=== PATIENT | male | born 1985 | race Caucasian/White ===

== ENCOUNTER 2017-11-10 08:15 | Emergency (ER) | payer BC, OTHER ==
[~2017-11-10] VITALS: Ht 172.7 cm; Wt 65.8 kg
[2017-11-10] MEDS ORDERED: PAXIL (08:38)
[2017-11-10] MEDS ORDERED: XANAX (08:38)
[2017-11-10] MEDS ORDERED: CHOLESTEROL MED (08:39)
[2017-11-10] MEDS ORDERED: LACTATED RINGERS 1,000 ML IV ONE (08:54)
[2017-11-10] MEDS ORDERED: LORazepam INJ 2 MG/ML (ATIVAN) VIAL IVP ONE (09:00)
--- NOTE | 2017-11-10 09:09 | ED Psychosocial ---
General Chief Complaint: Detox Stated Complaint: DETOX Nursing Triage Note: TO ROOM WITH PARENT. PATIENT WANTS DETOX FROM ALCOHOL LAST DRANK WAS LAST NIGHT, REPORTS. THAT IS SUPUPOSE TO BE ON PAXIL AND XANAX HAS STOPPED TAKING MEDS AND STARTED DRINKING. Source: patient Exam Limitations: no limitations History of Present Illness Date Seen by Provider: Nov 10, 2017 Time Seen by Provider: 08:45 Initial Comments Here with report of heavy alcohol use and wanted to stop drinking. States that he drinks a large bottle of vodka every 3 days. Last drink was last night some time. States that he wants to stop. Arrives hypertensive and with shakes. Also states that he takes alprazolam but has not been on that for the last week or 2. He takes it typically for his anxiety. Denies nausea or vomiting. Denies recent injury but had bump on his forehead that he is unsure were came from. Follows with Dr. Enciso. Last visit with his practitioner was 3 months ago or so. Works as a cook. Denies other recent injury or concerns. Timing/Duration: this morning Severity: moderate Associated Symptoms: other (alcohol abuse concerns) Allergies and Home Medications Allergies Coded Allergies: No Known Drug Allergies (Unverified , 08/19/14) Patient Home Medication List Home Medication List Reviewed: Yes Constitutional: see HPI, No chills, No fever EENTM: no symptoms reported Respiratory: no symptoms reported Cardiovascular: No edema, No palpitations Gastrointestinal: No abdominal pain, No hematemesis, loss of appetite, No nausea, No vomiting Genitourinary: no symptoms reported Musculoskeletal: no symptoms reported Skin: change in color, No lesions Psychiatric/Neurological: Anxiety, Denies Headache, Denies Numbness, Denies Paresthesia, Tremors All Other Systems Reviewed Negative Unless Noted: Yes Past Pvjvxpy-Blvkaz-Ubjvtf Hx Patient Social History Alcohol Use: Regular Use Alcohol Beverage of Choice: Vodka Recreational Drug Use: No Smoking Status: Never a Smoker Recent Foreign Travel: No Contact w/Someone Who Travel: No Recent Infectious Disease Expo: No Surgeries History of Surgeries: No Respiratory History of Respiratory Disorde: No Cardiovascular History of Cardiac Disorders: Yes Cardiac Disorders: High Cholesterol Neurological History of Neurological Disord: No Gastrointestinal History of Gastrointestinal Di: No Musculoskeletal History of Musculoskeletal Dis: No Endocrine History of Endocrine Disorders: No Cancer History of Cancer: No Psychosocial History of Psychiatric Problem: Yes Behavioral Health Disorders: Anxiety, Depression Integumentary History of Skin or Integumenta: No Reviewed Nursing Assessment Reviewed/Agree w Nursing PMH: Yes Family Medical History Significant Family History: No Pertinent Family Hx Physical Exam Vital Signs Vital Signs - First Documented 11/10/17 08:18 Temp 97.8 Pulse 130 Resp 18 B/P (MAP) 179/117 (137) Pulse Ox 98 O2 Delivery Room Air Capillary Refill : Less Than 3 Seconds General Appearance: WD/WN, no apparent distress HEENT: PERRL/EOMI, TMs normal, pharynx normal Neck: full range of motion, supple Respiratory: lungs clear, normal breath sounds Cardiovascular: no murmur, tachycardia Gastrointestinal: non tender, soft Extremities: non-tender, normal inspection Neurologic/Psychiatric: alert, oriented x 3, other (moderate tremors noted bilateral hands and arms and overall seems to be shaking some.) Appearance/Memory: appropriate appearance, appropriate insight Behavior/Eye Contact: cooperative, good eye contact, normal speech Skin: warm/dry, ecchymosis (3 x 3 cm area of ecchymosis/abrasion to the central upper forehead. No obvious bony abnormality otherwise.) Progress/Results/Core Measures Results/Orders Lab Results Laboratory Tests Test 11/10/17 09:03 11/10/17 09:28 Range/Units White Blood Count 4.0 L 4.3-11.0 10^3/uL Red Blood Count 3.91 L 4.35-5.85 10^6/uL Hemoglobin 14.8 13.3-17.7 G/DL Hematocrit 41 40-54 % Mean Corpuscular Volume 106 H 80-99 FL Mean Corpuscular Hemoglobin 38 H 25-34 PG Mean Corpuscular Hemoglobin Concent 36 32-36 G/DL Red Cell Distribution Width 13.3 10.0-14.5 % Platelet Count 149 130-400 10^3/uL Mean Platelet Volume 11.0 H 7.4-10.4 FL Neutrophils (%) (Auto) 40 L 42-75 % Lymphocytes (%) (Auto) 46 H 12-44 % Monocytes (%) (Auto) 13 H 0-12 % Eosinophils (%) (Auto) 1 0-10 % Basophils (%) (Auto) 1 0-10 % Neutrophils # (Auto) 1.6 L 1.8-7.8 X 10^3 Lymphocytes # (Auto) 1.9 1.0-4.0 X 10^3 Monocytes # (Auto) 0.5 0.0-1.0 X 10^3 Eosinophils # (Auto) 0.0 0.0-0.3 10^3/uL Basophils # (Auto) 0.0 0.0-0.1 10^3/uL Sodium Level 147 H 135-145 MMOL/L Potassium Level 3.6 3.6-5.0 MMOL/L Chloride Level 108 H 98-107 MMOL/L Carbon Dioxide Level 27 21-32 MMOL/L Anion Gap 12 5-14 MMOL/L Blood Urea Nitrogen 10 7-18 MG/DL Creatinine 0.74 0.60-1.30 MG/DL Estimat Glomerular Filtration Rate > 60 BUN/Creatinine Ratio 14 Glucose Level 84 70-105 MG/DL Calcium Level 9.2 8.5-10.1 MG/DL Total Bilirubin 0.6 0.1-1.0 MG/DL Aspartate Amino Transf (AST/SGOT) 165 H 5-34 U/L Alanine Aminotransferase (ALT/SGPT) 92 H 0-55 U/L Alkaline Phosphatase 68 40-136 U/L Total Protein 7.9 6.4-8.2 GM/DL Albumin 4.7 H 3.2-4.5 GM/DL Salicylates Level < 5.0 L 5.0-20.0 MG/DL Acetaminophen Level < 10 L 10-30 UG/ML Serum Alcohol 285 H <10 MG/DL Urine Color YELLOW Urine Clarity CLEAR Urine pH 6 5-9 Urine Specific [place] 1.020 1.016-1.022 Urine Protein 2+ H NEGATIVE Urine Glucose (UA) NEGATIVE NEGATIVE Urine Ketones NEGATIVE NEGATIVE Urine Nitrite NEGATIVE NEGATIVE Urine Bilirubin NEGATIVE NEGATIVE Urine Urobilinogen NORMAL NORMAL MG/DL Urine Leukocyte Esterase NEGATIVE NEGATIVE Urine RBC (Auto) NEGATIVE NEGATIVE Urine RBC NONE /HPF Urine WBC NONE /HPF Urine Squamous Epithelial Cells NONE /HPF Urine Crystals NONE /LPF Urine Bacteria NEGATIVE /HPF Urine Casts NONE /LPF Urine Mucus NEGATIVE /LPF Urine Culture Indicated NO Urine Opiates Screen NEGATIVE NEGATIVE Urine Oxycodone Screen NEGATIVE NEGATIVE Urine Methadone Screen NEGATIVE NEGATIVE Urine Propoxyphene Screen NEGATIVE NEGATIVE Urine Barbiturates Screen NEGATIVE NEGATIVE Ur Tricyclic Antidepressants Screen NEGATIVE NEGATIVE Urine Phencyclidine Screen NEGATIVE NEGATIVE Urine Amphetamines Screen NEGATIVE NEGATIVE Urine Methamphetamines Screen NEGATIVE NEGATIVE Urine Benzodiazepines Screen NEGATIVE NEGATIVE Urine Cocaine Screen NEGATIVE NEGATIVE Urine Cannabinoids Screen NEGATIVE NEGATIVE My Orders Orders - SHRUTHI DAVID MD Ua Culture If Indicated (11/10/17 08:54) Cbc With Automated Diff (11/10/17 08:54) Comprehensive Metabolic Panel (11/10/17 08:54) Alcohol (11/10/17 08:54) Drug Screen Stat (Urine) (11/10/17 08:54) Acetaminophen (11/10/17 08:54) Salicylate (11/10/17 08:54) Saline Lock/Iv-Start (11/10/17 08:54) Saline Lock/Iv-Start (11/10/17 08:54) Lactated Ringers (Lr 1000 Ml Iv Solution (11/10/17 08:54) Lorazepam Injection (Ativan Injection) (11/10/17 09:00) Ct Head Wo (11/10/17 08:56) Medications Given in ED Current Medications Medications Dose Ordered Sig/Amarjit Route Start Time Stop Time Status Last Admin Dose Admin Lactated Ringer's 1,000 ml @ 0 mls/hr Q0M ONCE IV 11/10/17 08:54 11/10/17 08:56 DC 11/10/17 09:09 1,000 MLS/HR Lorazepam 1 mg ONCE ONCE IVP 11/10/17 09:00 11/10/17 09:01 DC 11/10/17 09:09 1 MG Vital Signs/I&O Vital Sign - Last 12Hours 11/10/17 11/10/17 11/10/17 08:18 09:17 10:07 Temp 97.8 Pulse 130 105 Resp 18 18 B/P (MAP) 179/117 (137) 142/102 (115) 147/75 (99) Pulse Ox 98 95 O2 Delivery Room Air Room Air Blood Pressure Mean: 137 Progress Note : Progress Note Seen and evaluated. IV, labs, UA, UDS, normal saline 1 L bolus and Ativan 1 mg IV for significant withdrawal with heart rate 120s and blood pressure 170s over 120s. Also associated with fairly significant tremors. Monitor patient. 1030 : Labs and CT reviewed. I did discuss the case with Dr. Cami Farmer at [facility] with addiction treatment services. She has graciously accepted to see the patient today and assist with outpatient detox. Patient will go with his father. His father is very willing to help and also provide him a safe place to stay while going through the detox procedure. Patient still reports willingness and desired to stop drinking. Discharged home with return precautions. Patient and father will go directly to [facility]. Diagnostic Imaging Diagonstic Imaging: CT Plain Films/CT/US/NM/MRI: head Comments NAME: [facility] REC#: [id number] PT STATUS: REG ER : 1985 PHYSICIAN: SHRUTHI DAVID MD ADMIT DATE: 11/10/17/ER Signed Date of Exam: 11/10/17 CT HEAD WO PROCEDURE: CT head without contrast. TECHNIQUE: Multiple contiguous axial images were obtained through the brain without the use of intravenous contrast. INDICATION: Fall and head injury. No prior studies are available for comparison. FINDINGS: The ventricles and sulci are within normal limits. No sulcal effacement is identified. There is no midline shift. No acute intra-axial or extra-axial hemorrhage is detected. The cisterns are patent. The visualized paranasal sinuses are clear. IMPRESSION: No acute intracranial process is detected. Dictated by: Dictated on workstation # [id number] Dict: 11/10/17922 Trans: 11/10/17951 Interpreted by: SUGEY ANGULO MD Electronically signed by: SUGEY ANGULO MD 11/10/17951 Departure Impression Impression: Primary Impression: Alcohol abuse Additional Impression: Alcohol intoxication in active alcoholic Qualified Codes: F10.220 - Alcohol dependence with intoxication, uncomplicated Disposition: 01 HOME, SELF-CARE Condition: Stable Departure-Patient Inst. Decision time for Depature: 10:37 Referrals: CHARLEY ENCISO MD (PCP/Family) Primary Care Physician CAMI FARMER MD Patient Instructions: Alcohol Abuse and Alcoholism (DC) Add. Discharge Instructions: All discharge instructions reviewed with patient and/or family. Voiced understanding. Go directly to [facility] and he will see Dr. Farmer. Go through the [facility] entrance which is the specialty services entrance of the [facility] for your appointment. Return for other concerns as needed. Copy Copies To 1: CAMI FARMER MD Copies To 2: CHARLEY ENCISO MD, TIMOTHY D MD Nov 10, 2017 09:09
[2017-11-10 09:17] VITALS: BP 142/102
--- NOTE | 2017-11-10 09:26 | Diagnostic Imaging Report ---
PROCEDURE: CT head without contrast. TECHNIQUE: Multiple contiguous axial images were obtained through the brain without the use of intravenous contrast. INDICATION: Fall and head injury. No prior studies are available for comparison. FINDINGS: The ventricles and sulci are within normal limits. No sulcal effacement is identified. There is no midline shift. No acute intra-axial or extra-axial hemorrhage is detected. The cisterns are patent. The visualized paranasal sinuses are clear. IMPRESSION: No acute intracranial process is detected. Dictated by: Dictated on workstation # [id number]
[2017-11-10 09:27] LABS: BASOPHILS % (AUTO) 1 % (0-10); EOSINOPHILS % (AUTO) 1 % (0-10); HEMATOCRIT 41 % (40-54); HEMOGLOBIN 14.8 G/DL (13.3-17.7); LYMPHOCYTES # (AUTO) 1.9 X 10^3 (1.0-4.0); LYMPHOCYTES % (AUTO) 46 % (12-44); MEAN CORPUSCULAR HEMOGLOBIN 38 PG (25-34); MEAN CORPUSCULAR HGB CONC 36 G/DL (32-36); MEAN CORPUSCULAR VOLUME 106 FL (80-99); MONOCYTES # (AUTO) 0.5 X 10^3 (0.0-1.0); MONOCYTES % (AUTO) 13 % (0-12); NEUTROPHILS # (AUTO) 1.6 X 10^3 (1.8-7.8); NEUTROPHILS % (AUTO) 40 % (42-75); PLATELET COUNT 149 10^3/uL (130-400); RED BLOOD COUNT 3.91 10^6/uL (4.35-5.85); RED CELL DISTRIBUTION WIDTH 13.3 % (10.0-14.5)
[2017-11-10 09:34] LABS: BILIRUBIN,URINE NEGATIVE (NEGATIVE); CLARITY,URINE CLEAR; COLOR,URINE YELLOW; GLUCOSE, URINE (UA) NEGATIVE (NEGATIVE); KETONES,URINE NEGATIVE (NEGATIVE); LEUKOCYTE ESTERASE ,URINE NEGATIVE (NEGATIVE); NITRITE,URINE NEGATIVE (NEGATIVE); PH,URINE 6 (5-9); PROTEIN,URINE 2+ (NEGATIVE); UROBILINOGEN,URINE NORMAL (NORMAL)
[2017-11-10 09:38] LABS: ALANINE AMINOTRANSFERASE 92 U/L (0-55); ALBUMIN 4.7 GM/DL (3.2-4.5); ALKALINE PHOSPHATASE 68 U/L (40-136); BILIRUBIN,TOTAL 0.6 MG/DL (0.1-1.0); BUN/CREATININE RATIO 14; CALCIUM 9.2 MG/DL (8.5-10.1); CARBON DIOXIDE 27 MMOL/L (21-32); CHLORIDE 108 MMOL/L (98-107); CREATININE SERUM 0.74 MG/DL (0.60-1.30); GFR ESTIMATED > 60; GLUCOSE 84 MG/DL (70-105); POTASSIUM 3.6 MMOL/L (3.6-5.0); SALICYLATE < 5.0 MG/DL (5.0-20.0); SODIUM 147 MMOL/L (135-145); TOTAL PROTEIN 7.9 GM/DL (6.4-8.2)
[2017-11-10 09:41] LABS: ACETAMINOPHEN < 10 UG/ML (10-30)
[2017-11-10 09:49] LABS: AMPHETAMINE SCREEN, URINE NEGATIVE (NEGATIVE); BARBITURATE SCREEN URINE NEGATIVE (NEGATIVE); BENZODIAZEPINES SCREEN URINE NEGATIVE (NEGATIVE); CANNABINOID SCREEN, URINE NEGATIVE (NEGATIVE); COCAINE SCREEN URINE NEGATIVE (NEGATIVE); METHADONE STAT NEGATIVE (NEGATIVE); METHAMPHETAMINE SCREEN URINE S NEGATIVE (NEGATIVE); OPIATE SCREEN URINE NEGATIVE (NEGATIVE); OXYCODONE STAT NEGATIVE (NEGATIVE); PROPOXYPHENE STAT NEGATIVE (NEGATIVE); TRICYCLIC ANTIDEPRESSANTS SCRE NEGATIVE (NEGATIVE)
[2017-11-10 09:52] LABS: BACTERIA,URINE NEGATIVE /HPF
[2017-11-10 10:07] VITALS: BP 147/75
[2017-11-10 10:40] VITALS: BP 145/93
== END 2017-11-10 10:40 | disposition home or self-care (01) ==
LOC: EDUNIT# 08:15 → ER 08:17
DX: F10.229 Alcohol dependence with intoxication, unspecified (principal); E78.00 Pure hypercholesterolemia, unspecified; F41.9 Anxiety disorder, unspecified; F32.9 Major depressive disorder, single episode, unspecified
CPT/HCPCS: 36415; 70450; 80053; 80306; 80320; 80329; 81000; 85025; 96361; 96374

== ENCOUNTER 2017-11-13 09:50 | Inpatient (IN) | payer BC ==
[2017-11-13] VITALS (14 sets, daily range): BP systolic 101–181; BP diastolic 90–131
[~2017-11-13] VITALS: Ht 172.7 cm; Wt 76.3 kg
[~2017-11-13 09:50] MED LIST: CHOLESTEROL MED; PAXIL; XANAX
[2017-11-13] MEDS ORDERED: LACTATED RINGERS 1,000 ML IV ONE (10:14)
[2017-11-13] MEDS ORDERED: LORazepam INJ 2 MG/ML (ATIVAN) VIAL IVP ONE ×2 (10:15→11:00)
[2017-11-13 10:33] LABS: BASOPHILS % (AUTO) 0 % (0-10); EOSINOPHILS # (AUTO) 0.1 10^3/uL (0.0-0.3); EOSINOPHILS % (AUTO) 1 % (0-10); HEMATOCRIT 39 % (40-54); HEMOGLOBIN 14.1 G/DL (13.3-17.7); LYMPHOCYTES % (AUTO) 15 % (12-44); MEAN CORPUSCULAR HEMOGLOBIN 37 PG (25-34); MEAN CORPUSCULAR HGB CONC 36 G/DL (32-36); MEAN CORPUSCULAR VOLUME 104 FL (80-99); MEAN PLATELET VOLUME 11.5 FL (7.4-10.4); MONOCYTES # (AUTO) 0.8 X 10^3 (0.0-1.0); MONOCYTES % (AUTO) 12 % (0-12); NEUTROPHILS # (AUTO) 4.7 X 10^3 (1.8-7.8); NEUTROPHILS % (AUTO) 71 % (42-75); PLATELET COUNT 151 10^3/uL (130-400); RED BLOOD COUNT 3.77 10^6/uL (4.35-5.85); RED CELL DISTRIBUTION WIDTH 12.3 % (10.0-14.5); WHITE BLOOD COUNT 6.6 10^3/uL (4.3-11.0)
[2017-11-13 10:34] LABS: BILIRUBIN,URINE NEGATIVE (NEGATIVE); CLARITY,URINE SLIGHTLY CLOUDY; COLOR,URINE YELLOW; GLUCOSE, URINE (UA) NEGATIVE (NEGATIVE); KETONES,URINE NEGATIVE (NEGATIVE); LEUKOCYTE ESTERASE ,URINE 1+ (NEGATIVE); NITRITE,URINE NEGATIVE (NEGATIVE); PH,URINE 6 (5-9); PROTEIN,URINE NEGATIVE (NEGATIVE); UROBILINOGEN,URINE NORMAL (NORMAL)
[2017-11-13 10:49] LABS: BACTERIA,URINE NEGATIVE /HPF; HYALINE CASTS, URINE RARE /LPF; SQUAMOUS EPITHELIAL CELL,UR RARE /HPF; WBC,URINE RARE /HPF
[2017-11-13 10:55] LABS: ALANINE AMINOTRANSFERASE 87 U/L (0-55); ALBUMIN 4.5 GM/DL (3.2-4.5); ALKALINE PHOSPHATASE 80 U/L (40-136); AMPHETAMINE SCREEN, URINE NEGATIVE (NEGATIVE); BARBITURATE SCREEN URINE NEGATIVE (NEGATIVE); BENZODIAZEPINES SCREEN URINE POSITIVE (NEGATIVE); BILIRUBIN,TOTAL 0.8 MG/DL (0.1-1.0); BUN/CREATININE RATIO 16; CALCIUM 9.9 MG/DL (8.5-10.1); CANNABINOID SCREEN, URINE NEGATIVE (NEGATIVE); CARBON DIOXIDE 26 MMOL/L (21-32); CHLORIDE 104 MMOL/L (98-107); COCAINE SCREEN URINE NEGATIVE (NEGATIVE); CREATININE SERUM 0.79 MG/DL (0.60-1.30); GFR ESTIMATED > 60; GLUCOSE 95 MG/DL (70-105); MAGNESIUM 1.9 MG/DL (1.8-2.4); METHADONE STAT NEGATIVE (NEGATIVE); METHAMPHETAMINE SCREEN URINE S NEGATIVE (NEGATIVE); OPIATE SCREEN URINE NEGATIVE (NEGATIVE); OXYCODONE STAT NEGATIVE (NEGATIVE); POTASSIUM 4.1 MMOL/L (3.6-5.0); PROPOXYPHENE STAT NEGATIVE (NEGATIVE); SODIUM 137 MMOL/L (135-145); TOTAL PROTEIN 7.2 GM/DL (6.4-8.2); TRICYCLIC ANTIDEPRESSANTS SCRE NEGATIVE (NEGATIVE)
[2017-11-13 11:15] LABS: TSH (THYROID ANALYZER) 2.86 UIU/ML (0.35-4.94)
[2017-11-13] MEDS ORDERED: ZIPRASIDONE 20 MG (GEODON) CAP PO ONE (12:15)
--- NOTE | 2017-11-13 12:20 | ED Psychosocial ---
General Chief Complaint: Detox Stated Complaint: "HALLUCINATIONS" Nursing Triage Note: PT TO ED 8 PT CO OF HALLUCINATIONS AND CONFUSION. PT HAS BEEN DETOXING SINCE WEDNESDAY FROM DRINKING APPROX 3 GALLONS OF VODKA WEEKLY,PT WAS SEEN IN ED ON WEDNESDAY AND SEEN AT [facility] FOR DETOX MEDS. PT HAS TREMORS NOTED. PT DENIES SEIZURES Source: patient, family Exam Limitations: no limitations History of Present Illness Date Seen by Provider: Nov 13, 2017 Time Seen by Provider: 09:51 Initial Comments Patient presents in acute alcohol withdrawal with psychosis, tremors, hallucinations, tachycardia, and confusion. He quit drinking alcohol on November 10. He was being seen by Dr. Mikala Jenkins in the clinic setting and has been taking Ativan and clonidine orally. This has not been sufficient for management of his symptoms. Allergies and Home Medications Allergies Coded Allergies: No Known Drug Allergies (Unverified , 08/19/14) Patient Home Medication List Home Medication List Reviewed: Yes Constitutional: no symptoms reported EENTM: no symptoms reported Respiratory: no symptoms reported Cardiovascular: see HPI (tachycardia) Gastrointestinal: nausea Genitourinary: no symptoms reported Musculoskeletal: no symptoms reported Skin: no symptoms reported Psychiatric/Neurological: See HPI Past Ectgthe-Ncupnw-Lxtaxd Hx Patient Social History Alcohol Use: Regular Use Number of Drinks Today: 0 Alcohol Beverage of Choice: Vodka Recreational Drug Use: No Smoking Status: Current Everyday Smoker Type Used: Cigarettes Recent Foreign Travel: No Contact w/Someone Who Travel: No Recent Infectious Disease Expo: No Recent Hopitalizations: No Physical Abuse: No Sexual Abuse: No Seasonal Allergies Seasonal Allergies: No Surgeries History of Surgeries: No Respiratory History of Respiratory Disorde: No Cardiovascular History of Cardiac Disorders: Yes Cardiac Disorders: High Cholesterol Neurological History of Neurological Disord: No Genitourinary History of Genitourinary Disor: No Gastrointestinal History of Gastrointestinal Di: No Musculoskeletal History of Musculoskeletal Dis: No Endocrine History of Endocrine Disorders: No HEENT History of HEENT Disorders: No Cancer History of Cancer: No Psychosocial History of Psychiatric Problem: Yes (alcohol dependence) Behavioral Health Disorders: Anxiety, Depression Suicide Risk Score: 0 Integumentary History of Skin or Integumenta: No Family Medical History Significant Family History: No Pertinent Family Hx Physical Exam Vital Signs Vital Signs - First Documented 11/13/17 10:00 Temp 97.9 Pulse 92 Resp 18 B/P (MAP) 148/105 (119) Pulse Ox 98 Capillary Refill : Less Than 3 Seconds General Appearance: WD/WN, mild distress HEENT: PERRL/EOMI, normal ENT inspection, pharynx normal Neck: normal inspection Respiratory: lungs clear, normal breath sounds, no respiratory distress, no accessory muscle use Cardiovascular: no edema, no murmur, tachycardia Gastrointestinal: normal bowel sounds, non tender, soft Extremities: normal inspection, no pedal edema Neurologic/Psychiatric: barrel centerer II-XII nml as tested, no motor/sensory deficits, alert, other (disoriented, hallucinating, occasionally agitated) Appearance/Memory: impaired insight, impaired recent memory Behavior/Eye Contact: cooperative, good eye contact, normal speech Thoughts/Hallucinations: tactile hallucinations, visual hallucinations Skin: normal color, warm/dry Progress/Results/Core Measures Results/Orders Lab Results Laboratory Tests Test 11/13/17 10:23 Range/Units White Blood Count 6.6 4.3-11.0 10^3/uL Red Blood Count 3.77 L 4.35-5.85 10^6/uL Hemoglobin 14.1 13.3-17.7 G/DL Hematocrit 39 L 40-54 % Mean Corpuscular Volume 104 H 80-99 FL Mean Corpuscular Hemoglobin 37 H 25-34 PG Mean Corpuscular Hemoglobin Concent 36 32-36 G/DL Red Cell Distribution Width 12.3 10.0-14.5 % Platelet Count 151 130-400 10^3/uL Mean Platelet Volume 11.5 H 7.4-10.4 FL Neutrophils (%) (Auto) 71 42-75 % Lymphocytes (%) (Auto) 15 12-44 % Monocytes (%) (Auto) 12 0-12 % Eosinophils (%) (Auto) 1 0-10 % Basophils (%) (Auto) 0 0-10 % Neutrophils # (Auto) 4.7 1.8-7.8 X 10^3 Lymphocytes # (Auto) 1.0 1.0-4.0 X 10^3 Monocytes # (Auto) 0.8 0.0-1.0 X 10^3 Eosinophils # (Auto) 0.1 0.0-0.3 10^3/uL Basophils # (Auto) 0.0 0.0-0.1 10^3/uL Urine Color YELLOW Urine Clarity SLIGHTLY CLOUDY Urine pH 6 5-9 Urine Specific [place] 1.010 L 1.016-1.022 Urine Protein NEGATIVE NEGATIVE Urine Glucose (UA) NEGATIVE NEGATIVE Urine Ketones NEGATIVE NEGATIVE Urine Nitrite NEGATIVE NEGATIVE Urine Bilirubin NEGATIVE NEGATIVE Urine Urobilinogen NORMAL NORMAL MG/DL Urine Leukocyte Esterase 1+ H NEGATIVE Urine RBC (Auto) NEGATIVE NEGATIVE Urine RBC NONE /HPF Urine WBC RARE /HPF Urine Squamous Epithelial Cells RARE /HPF Urine Crystals NONE /LPF Urine Bacteria NEGATIVE /HPF Urine Casts PRESENT /LPF Urine Hyaline Casts RARE /LPF Urine Mucus NEGATIVE /LPF Urine Culture Indicated NO Sodium Level 137 135-145 MMOL/L Potassium Level 4.1 3.6-5.0 MMOL/L Chloride Level 104 98-107 MMOL/L Carbon Dioxide Level 26 21-32 MMOL/L Anion Gap 7 5-14 MMOL/L Blood Urea Nitrogen 13 7-18 MG/DL Creatinine 0.79 0.60-1.30 MG/DL Estimat Glomerular Filtration Rate > 60 BUN/Creatinine Ratio 16 Glucose Level 95 70-105 MG/DL Calcium Level 9.9 8.5-10.1 MG/DL Magnesium Level 1.9 1.8-2.4 MG/DL Total Bilirubin 0.8 0.1-1.0 MG/DL Aspartate Amino Transf (AST/SGOT) 103 H 5-34 U/L Alanine Aminotransferase (ALT/SGPT) 87 H 0-55 U/L Alkaline Phosphatase 80 40-136 U/L Total Protein 7.2 6.4-8.2 GM/DL Albumin 4.5 3.2-4.5 GM/DL TSH [place] Testing 2.86 0.35-4.94 UIU/ML Urine Opiates Screen NEGATIVE NEGATIVE Urine Oxycodone Screen NEGATIVE NEGATIVE Urine Methadone Screen NEGATIVE NEGATIVE Urine Propoxyphene Screen NEGATIVE NEGATIVE Urine Barbiturates Screen NEGATIVE NEGATIVE Ur Tricyclic Antidepressants Screen NEGATIVE NEGATIVE Urine Phencyclidine Screen NEGATIVE NEGATIVE Urine Amphetamines Screen NEGATIVE NEGATIVE Urine Methamphetamines Screen NEGATIVE NEGATIVE Urine Benzodiazepines Screen POSITIVE H NEGATIVE Urine Cocaine Screen NEGATIVE NEGATIVE Urine Cannabinoids Screen NEGATIVE NEGATIVE Serum Alcohol < 10 <10 MG/DL My Orders Orders - LING MARTIN MD Alcohol (11/13/17 10:05) Cbc With Automated Diff (11/13/17 10:05) Comprehensive Metabolic Panel (11/13/17 10:05) Drug Screen Stat (Urine) (11/13/17 10:05) Magnesium (11/13/17 10:05) Thyroid Analyzer (11/13/17 10:05) Ua Culture If Indicated (11/13/17 10:05) Saline Lock/Iv-Start (11/13/17 10:05) Saline Lock/Iv-Start (11/13/17 10:14) Lactated Ringers (Lr 1000 Ml Iv Solution (11/13/17 10:14) Lorazepam Injection (Ativan Injection) (11/13/17 10:15) Lorazepam Injection (Ativan Injection) (11/13/17 11:00) Ziprasidone Capsule (Geodon Capsule) (11/13/17 12:15) Medications Given in ED Current Medications Medications Dose Ordered Sig/Amarjit Route Start Time Stop Time Status Last Admin Dose Admin Lactated Ringer's 1,000 ml @ 0 mls/hr Q0M ONCE IV 11/13/17 10:14 11/13/17 10:17 DC 11/13/17 10:30 1,000 MLS/HR Lorazepam 2 mg ONCE ONCE IVP 11/13/17 10:15 11/13/17 10:17 DC 11/13/17 10:30 2 MG Lorazepam 2 mg ONCE ONCE IVP 11/13/17 11:00 11/13/17 11:01 DC 11/13/17 11:03 2 MG Vital Signs/I&O Vital Sign - Last 12Hours 11/13/17 11/13/17 11/13/17 11/13/17 10:00 12:50 13:00 13:00 Temp 97.9 Pulse 92 88 70 Resp 18 18 12 B/P (MAP) 148/105 (119) 146/109 (119) 153/103 (120) Pulse Ox 98 98 O2 Delivery Room Air Room Air 11/13/17 11/13/17 11/13/17 11/13/17 13:04 13:15 13:30 13:45 Pulse 84 93 121 111 Resp 13 23 8 B/P (MAP) 141/114 (123) 159/127 (138) O2 Delivery Room Air Room Air Room Air 11/13/17 11/13/17 11/13/17 11/13/17 14:00 14:15 15:00 16:00 Pulse 138 123 85 Resp 27 27 9 B/P (MAP) 101/90 (94) 140/108 (119) 150/99 (116) O2 Delivery Room Air Room Air Room Air Room Air 11/13/17 11/13/17 16:00 17:00 Pulse 140 76 Resp 18 15 B/P (MAP) 181/131 (148) 157/109 (125) Pulse Ox 95 96 O2 Delivery Room Air Room Air Blood Pressure Mean: 119 Progress Note : Progress Note Patient received a liter of LR. He received a total of 4 mg of Ativan in the emergency room and was still rather symptomatic. Geodon 20 mg orally was also ordered. Patient will be admitted to the ICU on alcohol withdrawal protocol. Departure Communication (Admissions) Time/Spoke to Admitting Phy: 12:[address] Mireles Impression Impression: Primary Impression: Alcohol withdrawal Qualified Codes: F10.231 - Alcohol dependence with withdrawal delirium Additional Impression: Acute psychosis Disposition: ADMITTED INPATIENT Condition: Improved Admissions Decision to Admit Reason: Admit from ER (General) Decision to Admit/Date: Nov 13, 2017 Time/Decision to Admit Time: 10:00 Departure-Patient Inst. Referrals: CHARLEY ENCISO MD (PCP/Family) Primary Care Physician LING MARTIN MD Nov 13, 2017 12:20
[2017-11-13] MEDS ORDERED: LORazepam 1 MG (ATIVAN) TAB ONE (13:32)
[2017-11-13] MEDS ORDERED: 1/2 NS IV SOLUTION 1,000 ML IV PRN (13:40)
[2017-11-13] MEDS: LORazepam 1 MG (ATIVAN) TAB PO PRN (13:44)
[2017-11-13] MEDS ORDERED: ONDANSETRON 4 MG (ZOFRAN) ORAL DISSOLVE TAB SL PRN (13:45)
[2017-11-13] MEDS ORDERED: ONDANSETRON 4 MG/2 ML (SDV) Z0FRAN IV PRN (13:45)
[2017-11-13] MEDS ORDERED: D5 1/2 NS 1000 ML IV SOLUTION 1,000 ML IV PRN (13:45)
[2017-11-13] MEDS ORDERED: SENNA W/DOCUSATE (SENOKOT S) TABLET PO PRN (13:45)
--- NOTE | 2017-11-13 14:27 | History & Physicial (CHS) ---
HPI History of Present Illness: 32-year-old white male admitted through emergency department after suffering from psychosis due to alcohol delirium and withdrawal. Patient quit drinking alcohol as he admits to on November 10, 2017. Patient has received Ativan intravenously in the emergency department with minimal relief of his psychosis. He'll be admitted for further alcohol detoxification orders and ICU monitoring. Source: patient Date seen by provider: Nov 13, 2017 Time Seen by Provider: 14:30 Attending Physician Nara Tijerina MD PCP Chris Potts MD Consult Date of Admission Nov 13, 2017 at 12:13 Home Medications Home Medications Reviewed patient Home Medication Reconciliation performed by pharmacy medication reconciliations thermal technician and/or nursing. Patients Allergies have been reviewed. Allergies Coded Allergies: No Known Drug Allergies (Unverified , 08/19/14) KSC-Lipnze-Tnjcod Hx Patient Social History Alcohol Use: Regular Use Recreational Drug Use: No Smoking Status: Current Someday Smoker Type Used: Cigarettes Recent Foreign Travel: No Contact w/other who traveled: No Recent Hopitalizations: No Recent Infectious Disease Expo: No Physical Abuse Screen: No Sexual Abuse: No Family Medical History Significant Family History: No Pertinent Family Hx Family History: Alcoholism G8 BROTHER Alzheimer's disease Insomnia G8 BROTHER Myocardial infarction 19 FATHER Review of Systems (CHC) Constitutional: see HPI Reviewed Test Results Reviewed Test Results Lab Laboratory Tests Test 11/13/17 10:23 Range/Units White Blood Count 6.6 4.3-11.0 10^3/uL Red Blood Count 3.77 L 4.35-5.85 10^6/uL Hemoglobin 14.1 13.3-17.7 G/DL Hematocrit 39 L 40-54 % Mean Corpuscular Volume 104 H 80-99 FL Mean Corpuscular Hemoglobin 37 H 25-34 PG Mean Corpuscular Hemoglobin Concent 36 32-36 G/DL Red Cell Distribution Width 12.3 10.0-14.5 % Platelet Count 151 130-400 10^3/uL Mean Platelet Volume 11.5 H 7.4-10.4 FL Neutrophils (%) (Auto) 71 42-75 % Lymphocytes (%) (Auto) 15 12-44 % Monocytes (%) (Auto) 12 0-12 % Eosinophils (%) (Auto) 1 0-10 % Basophils (%) (Auto) 0 0-10 % Neutrophils # (Auto) 4.7 1.8-7.8 X 10^3 Lymphocytes # (Auto) 1.0 1.0-4.0 X 10^3 Monocytes # (Auto) 0.8 0.0-1.0 X 10^3 Eosinophils # (Auto) 0.1 0.0-0.3 10^3/uL Basophils # (Auto) 0.0 0.0-0.1 10^3/uL Urine Color YELLOW Urine Clarity SLIGHTLY CLOUDY Urine pH 6 5-9 Urine Specific [place] 1.010 L 1.016-1.022 Urine Protein NEGATIVE NEGATIVE Urine Glucose (UA) NEGATIVE NEGATIVE Urine Ketones NEGATIVE NEGATIVE Urine Nitrite NEGATIVE NEGATIVE Urine Bilirubin NEGATIVE NEGATIVE Urine Urobilinogen NORMAL NORMAL MG/DL Urine Leukocyte Esterase 1+ H NEGATIVE Urine RBC (Auto) NEGATIVE NEGATIVE Urine RBC NONE /HPF Urine WBC RARE /HPF Urine Squamous Epithelial Cells RARE /HPF Urine Crystals NONE /LPF Urine Bacteria NEGATIVE /HPF Urine Casts PRESENT /LPF Urine Hyaline Casts RARE /LPF Urine Mucus NEGATIVE /LPF Urine Culture Indicated NO Sodium Level 137 135-145 MMOL/L Potassium Level 4.1 3.6-5.0 MMOL/L Chloride Level 104 98-107 MMOL/L Carbon Dioxide Level 26 21-32 MMOL/L Anion Gap 7 5-14 MMOL/L Blood Urea Nitrogen 13 7-18 MG/DL Creatinine 0.79 0.60-1.30 MG/DL Estimat Glomerular Filtration Rate > 60 BUN/Creatinine Ratio 16 Glucose Level 95 70-105 MG/DL Calcium Level 9.9 8.5-10.1 MG/DL Magnesium Level 1.9 1.8-2.4 MG/DL Total Bilirubin 0.8 0.1-1.0 MG/DL Aspartate Amino Transf (AST/SGOT) 103 H 5-34 U/L Alanine Aminotransferase (ALT/SGPT) 87 H 0-55 U/L Alkaline Phosphatase 80 40-136 U/L Total Protein 7.2 6.4-8.2 GM/DL Albumin 4.5 3.2-4.5 GM/DL TSH [facility] Testing 2.86 0.35-4.94 UIU/ML Urine Opiates Screen NEGATIVE NEGATIVE Urine Oxycodone Screen NEGATIVE NEGATIVE Urine Methadone Screen NEGATIVE NEGATIVE Urine Propoxyphene Screen NEGATIVE NEGATIVE Urine Barbiturates Screen NEGATIVE NEGATIVE Ur Tricyclic Antidepressants Screen NEGATIVE NEGATIVE Urine Phencyclidine Screen NEGATIVE NEGATIVE Urine Amphetamines Screen NEGATIVE NEGATIVE Urine Methamphetamines Screen NEGATIVE NEGATIVE Urine Benzodiazepines Screen POSITIVE H NEGATIVE Urine Cocaine Screen NEGATIVE NEGATIVE Urine Cannabinoids Screen NEGATIVE NEGATIVE Serum Alcohol < 10 <10 MG/DL Physical Exam-(CHC) Physical Exam Vital Signs VS - Last 72 Hours, by Label 11/13/17 11/13/17 11/13/17 11/13/17 10:00 12:50 13:00 13:00 Temp 97.9 Pulse 92 88 70 Resp 18 18 12 B/P (MAP) 148/105 (119) 146/109 (119) 153/103 (120) Pulse Ox 98 98 O2 Delivery Room Air Room Air 11/13/17 11/13/17 11/13/17 11/13/17 13:04 13:15 13:30 13:45 Pulse 84 93 121 111 Resp 13 23 8 B/P (MAP) 141/114 (123) 159/127 (138) O2 Delivery Room Air Room Air Room Air 11/13/17 11/13/17 11/13/17 11/13/17 14:00 14:15 15:00 16:00 Pulse 138 123 85 Resp 27 27 9 B/P (MAP) 101/90 (94) 140/108 (119) 150/99 (116) O2 Delivery Room Air Room Air Room Air Room Air 11/13/17 11/13/17 11/13/17 11/13/17 16:00 17:00 18:00 19:00 Pulse 140 76 58 54 Resp 18 15 13 B/P (MAP) 181/131 (148) 157/109 (125) 158/113 (128) Pulse Ox 95 96 96 O2 Delivery Room Air Room Air Room Air 11/13/17 11/13/17 11/13/17 11/13/17 19:20 20:00 20:00 21:00 Temp 96.6 Pulse 68 48 48 Resp 15 14 13 B/P (MAP) 145/108 (120) 162/108 (126) 157/108 (124) Pulse Ox 96 96 95 O2 Delivery Room Air Room Air Room Air Room Air 11/13/17 11/13/17 11/14/17 11/14/17 22:00 23:00 00:00 00:00 Temp 97.2 Pulse 73 44 45 Resp 15 12 12 B/P (MAP) 165/115 (132) 168/112 (130) 163/115 (131) Pulse Ox 92 98 100 O2 Delivery Nasal Cannula Nasal Cannula Nasal Cannula Nasal Cannula O2 Flow Rate 2.00 2.00 2.00 2.00 11/14/17 11/14/17 11/14/17 11/14/17 01:00 01:00 02:00 03:00 Pulse 71 44 43 45 Resp 11 10 16 B/P (MAP) 167/128 (141) 162/116 (131) 162/114 (130) Pulse Ox 96 100 99 O2 Delivery Nasal Cannula Nasal Cannula Nasal Cannula O2 Flow Rate 3.00 3.00 3.00 11/14/17 11/14/17 11/14/17 11/14/17 04:00 04:00 04:00 05:00 Temp 96.8 Pulse 57 72 Resp 13 12 B/P (MAP) 178/129 (145) 153/126 (135) Pulse Ox 100 98 O2 Delivery Nasal Cannula Nasal Cannula Nasal Cannula O2 Flow Rate 3.00 3.00 3.00 11/14/17 11/14/17 11/14/17 11/14/17 06:00 07:00 07:00 08:00 Pulse 81 75 75 80 Resp 11 11 10 B/P (MAP) 147/100 (116) 134/99 (111) 131/109 (116) Pulse Ox 100 100 100 O2 Delivery Nasal Cannula Nasal Cannula Nasal Cannula O2 Flow Rate 3.00 3.00 3.00 11/14/17 08:00 O2 Delivery Nasal Cannula O2 Flow Rate 3.00 Capillary Refill : Less Than 3 Seconds General Appearance: other HEENT: pharynx normal Neck: supple Respiratory: lungs clear Cardiovascular: regular rate, rhythm (on admit) Gastrointestinal: soft Rectal: deferred Back: normal inspection Extremities: no pedal edema Neurologic/Psychiatric: alert, other (Very agitated) Skin: normal color Assessment/Plan Assessment/Plan Admission Dx 1. Alcohol withdrawal 2. Acute psychosis due to the alcohol withdrawal Admission Status: Observation Reason for Inpatient Admission: Further monitoring of his alcohol withdrawal and delirium Assessment & Plan 1. Alcohol withdrawal -Patient to be placed on detoxification orders 2. Acute psychosis due to the alcohol withdrawal -Detox orders should help with the psychosis as he improves. -Ativan when necessary Clinical Quality Measures DVT/VTE Risk/Contraindication: Risk Factor Score Per Nursin RFS Level Per Nursing on Admit: 1=Low/No VTE PPX NARA TIJERINA MD Nov 13, 2017 14:27
[2017-11-13] MEDS: LORazepam INJ 2 MG/ML (ATIVAN) VIAL IV PRN ×5 (14:48→21:30)
[2017-11-13] MEDS: DEXMEDETOMIDINE INJECTION 400 MCG in NS (IVPB) 96 ML IV SCH ×2 (15:29→21:11)
[2017-11-13] MEDS: D5 1/2 NS 1000 ML IV SOLUTION 1,000 ML IV SCH ×2 (15:42→22:23)
[2017-11-13] MEDS ORDERED: INFLUENZA TRIvalent 2017-2018 0.5 ML/45 MCG SYR IM ONE (15:45)
[2017-11-13] MEDS ORDERED: OLANZapine 5 MG ODT (ZyPREXA ZYDIS) ONE (16:27)
[2017-11-13] MEDS ORDERED: HALOPERIDOL 5 MG/ML (HALDOL) AMP ONE (16:43)
[2017-11-13] MEDS ORDERED: OLANZapine 5 MG ODT (ZyPREXA ZYDIS) PO PRN (16:45)
[2017-11-13] MEDS ORDERED: LORazepam INJ 2 MG/ML (ATIVAN) VIAL IV NR (16:57)
[2017-11-13] MEDS: QUEtiapine 100 MG (SEROquel) TAB IMMEDIATE RELEASE PO SCH (21:00)
[2017-11-13] MEDS ORDERED: MAGNESIUM OXIDE (MAG-OX)400 MG TAB PO SCH (21:00)
[2017-11-13] MEDS: LORazepam INJ 2 MG/ML (ATIVAN) VIAL IM/IV PRN (22:16)
[2017-11-13] MEDS: HALOPERIDOL 5 MG/ML (HALDOL) AMP IV PRN (22:25)
[2017-11-14] VITALS (24 sets, daily range): BP systolic 98–178; BP diastolic 64–129
[2017-11-14] MEDS: LORazepam INJ 2 MG/ML (ATIVAN) VIAL IV PRN ×5 (00:47→11:59)
[2017-11-14] MEDS: DEXMEDETOMIDINE INJECTION 400 MCG in NS (IVPB) 96 ML IV SCH ×2 (05:11→22:03)
[2017-11-14] MEDS: D5 1/2 NS 1000 ML IV SOLUTION 1,000 ML IV SCH ×3 (05:25→20:52)
[2017-11-14] MEDS ORDERED: MULTIVIT W/MINERALS TAB (THERAGRAN M) PO SCH (07:00)
[2017-11-14] MEDS ORDERED: THIAMINE 100 MG (VITAMIN B-1) TAB PO SCH (07:00)
[2017-11-14] MEDS: HALOPERIDOL 5 MG/ML (HALDOL) AMP IV PRN ×2 (08:09→11:59)
[2017-11-14] MEDS: FOLIC ACID 1 MG TAB PO SCH (08:14)
[2017-11-14] MEDS: THIAMINE INJECTION 100 MG, FOLIC ACID INJECTION 1 MG, VITAMIN MULTI INJECTION 10 ML, MA... IV SCH ×5 (08:41)
--- NOTE | 2017-11-14 08:51 | Progress Note (SOAP) ---
Subjective Subjective/Events-last exam Patient has been up throughout the night off and on. At times of agitation his blood pressure is elevated. He is also converted over to A. fib throughout the night. Review of Systems Date Seen by Provider: Nov 14, 2017 Time Seen by Provider: 07:15 Objective Exam Last Set of Vital Signs Vital Signs Date Time Temp Pulse Resp B/P (MAP) Pulse Ox O2 Delivery O2 Flow Rate FiO2 11/14/17 08:00 Nasal Cannula 3.00 11/14/17 08:00 80 10 131/109 (116) 100 11/14/17 04:00 96.8 Capillary Refill : Less Than 3 Seconds I&O Intake and Output 11/14/17 00:00 Intake Total 1692 ml Output Total 950 ml Balance 742 ml Intake Oral 590 ml IV Total 1102 ml Output Urine Total 950 ml # Voids 5 Daily Weight Change No General: No Acute Distress (This a.m. and he is resting) Neck: Supple Lungs: Clear to Auscultation Heart: Other (Irregular irregular) Abdomen: Soft Skin: No Rashes Results/Procedures Lab Laboratory Tests 11/13/17 10:23: White Blood Count 6.6, Red Blood Count 3.77L, Hemoglobin 14.1, Hematocrit 39L, Mean Corpuscular Volume 104H, Mean Corpuscular Hemoglobin 37H, Mean Corpuscular Hemoglobin Concent 36, Red Cell Distribution Width 12.3, Platelet Count 151, Mean Platelet Volume 11.5H, Neutrophils (%) (Auto) 71, Lymphocytes (%) (Auto) 15 , Monocytes (%) (Auto) 12, Eosinophils (%) (Auto) 1, Basophils (%) (Auto) 0, Neutrophils # (Auto) 4.7, Lymphocytes # (Auto) 1.0, Monocytes # (Auto) 0.8, Eosinophils # (Auto) 0.1, Basophils # (Auto) 0.0, Urine Color YELLOW, Urine Clarity SLIGHTLY CLOUDY, Urine pH 6, Urine Specific [place] 1.010L, Urine Protein NEGATIVE, Urine Glucose (UA) NEGATIVE, Urine Ketones NEGATIVE, Urine Nitrite NEGATIVE, Urine Bilirubin NEGATIVE, Urine Urobilinogen NORMAL, Urine Leukocyte Esterase 1+H, Urine RBC (Auto) NEGATIVE, Urine RBC NONE, Urine WBC RARE, Urine Squamous Epithelial Cells RARE, Urine Crystals NONE, Urine Bacteria NEGATIVE, Urine Casts PRESENT, Urine Hyaline Casts RARE, Urine Mucus NEGATIVE, Urine Culture Indicated NO, Sodium Level 137, Potassium Level 4.1, Chloride Level 104, Carbon Dioxide Level 26, Anion Gap 7, Blood Urea Nitrogen 13, Creatinine 0.79, Estimat Glomerular Filtration Rate > 60, BUN/Creatinine Ratio 16, Glucose Level 95, Calcium Level 9.9, Magnesium Level 1.9, Total Bilirubin 0.8, Aspartate Amino Transf (AST/SGOT) 103H, Alanine Aminotransferase (ALT/SGPT ) 87H, Alkaline Phosphatase 80, Total Protein 7.2, Albumin 4.5, TSH [place] Testing 2.86, Urine Opiates Screen NEGATIVE, Urine Oxycodone Screen NEGATIVE, Urine Methadone Screen NEGATIVE, Urine Propoxyphene Screen NEGATIVE, Urine Barbiturates Screen NEGATIVE, Ur Tricyclic Antidepressants Screen NEGATIVE, Urine Phencyclidine Screen NEGATIVE, Urine Amphetamines Screen NEGATIVE, Urine Methamphetamines Screen NEGATIVE, Urine Benzodiazepines Screen POSITIVEH, Urine Cocaine Screen NEGATIVE, Urine Cannabinoids Screen NEGATIVE, Serum Alcohol < 10 Assessment/Plan Assessment/Plan Admission Status: Inpatient Order (span 2 midnights) Assessment & Plan 1. Alcohol withdrawal -Patient to be placed on detoxification orders 2. Acute psychosis due to the alcohol withdrawal -Detox orders should help with the psychosis as he improves. -Ativan when necessary 4/ patient is requiring Precedex, Ativan, and Haldol as needed 3. Atrial fibrillation with variable heart rate -He is also noted to have elevated blood pressure and this may be related to his withdrawal state -Consult with cardiology Clinical Quality Measures DVT/VTE Risk/Contraindication: Risk Factor Score Per Nursin RFS Level Per Nursing on Admit: 1=Low/No VTE PPX NARA TIJERINA MD Nov 14, 2017 08:51
[2017-11-14] MEDS ORDERED: MIRT15TA6 PO (12:29)
[2017-11-14] MEDS ORDERED: FOLI1TAB24 PO (12:29)
[2017-11-14] MEDS ORDERED: CLON0.1T PO (12:29)
[2017-11-14] MEDS ORDERED: LORA2TAB PO (12:29)
--- NOTE | 2017-11-14 13:21 | Consultation-Cardiology ---
HPI-Cardiology Cardiology Consultation: Date of Consultation 11/14/17 Time Seen by Provider: 12:15 Date of Admission Attending Physician Isaiah Mireles MD Admitting Physician Chris Potts MD Consulting Physician STEPHEN MISTRY MD, MA, FACP, FACC, FSCAI, CCDS HPI: Chief Complaint: Reason for consultation: A Fib with RVR HPI: 32 yo man admitted to Dr Mireles's svce on 11/13/17 with DT following alcohol cessation on 11/10/17. Has been treated with benzodiazepines for acute psychosis. Currently, calm but sleepy and unable to provide any detailed history. Does not report cp or shortness of breath or palp or syncope. We have been asked to see him because he has had A Fib with RVR during this hosp Review of Systems-Cardiology Review of Systems Constitutional: other (Due to treatment with benzodiazepines for psychosis, he is not able to provide a detailed ROS. See under HPI, please) [id number] Hx Patient Social History Alcohol Use: Regular Use Recreational Drug Use: No Smoking Status: Current Someday Smoker Type Used: Cigarettes Recent Foreign Travel: No Recent Infectious Disease Expo: No Hospitalization with Isolation: Denies Physical Abuse Screen: No Sexual Abuse: No Past Medical History PMH As described under Assessment. Family Medical History Family History: Alcoholism G8 BROTHER Alzheimer's disease Insomnia G8 BROTHER Myocardial infarction 19 FATHER Allergies and Home Medications Allergies Coded Allergies: No Known Drug Allergies (Unverified , 08/19/14) Home Medications Clonidine HCl 0.1 Mg Tablet, 0.1 MG PO BID, (Reported) Folic Acid 1 Mg Tablet, 1 MG PO DAILY, (Reported) FILLED 11/10/17 #3 FOR A 3 DAY THERAPY Lorazepam 2 Mg Tablet, 2 MG PO Q8H PRN for ANXIETY, (Reported) Mirtazapine 15 Mg Tablet, 15 MG PO HS, (Reported) Patient Home Medication List Home Medication List Reviewed: Yes Physical Exam-Cardiology Physical Exam Vital Signs/I&O Vital Sign - Last 12Hours 11/14/17 11/14/17 11/14/17 11/14/17 02:00 03:00 04:00 04:00 Temp 96.8 Pulse 43 45 57 Resp 10 16 13 B/P (MAP) 162/116 (131) 162/114 (130) 178/129 (145) Pulse Ox 100 99 100 O2 Delivery Nasal Cannula Nasal Cannula Nasal Cannula O2 Flow Rate 3.00 3.00 3.00 11/14/17 11/14/17 11/14/17 11/14/17 04:00 05:00 06:00 07:00 Pulse 72 81 75 Resp 12 11 B/P (MAP) 153/126 (135) 147/100 (116) Pulse Ox 98 100 O2 Delivery Nasal Cannula Nasal Cannula Nasal Cannula O2 Flow Rate 3.00 3.00 3.00 11/14/17 11/14/17 11/14/17 11/14/17 07:00 08:00 08:00 08:00 Pulse 75 80 Resp 11 10 B/P (MAP) 134/99 (111) 131/109 (116) Pulse Ox 100 100 O2 Delivery Nasal Cannula Nasal Cannula Nasal Cannula Nasal Cannula O2 Flow Rate 3.00 3.00 3.00 3.00 11/14/17 11/14/17 11/14/17 11/14/17 09:00 09:00 10:00 11:00 Temp 96.9 Pulse 82 80 87 Resp 14 11 16 B/P (MAP) 125/107 (113) 128/102 (111) 117/102 (107) Pulse Ox 91 95 93 O2 Delivery Nasal Cannula Nasal Cannula Nasal Cannula O2 Flow Rate 3.00 3.00 3.00 11/14/17 11/14/17 11/14/17 12:00 12:00 12:00 Temp 95.8 Pulse 83 Resp 11 B/P (MAP) 112/74 (87) Pulse Ox 98 O2 Delivery Nasal Cannula Nasal Cannula O2 Flow Rate 3.00 3.00 Intake and Output 11/14/17 00:00 Intake Total 1692 ml Output Total 950 ml Balance 742 ml Capillary Refill : Less Than 3 Seconds Constitutional: well-developed, well-nourished, other (Somnolent, arouses, not able to provide much history) HEENT: PERRL, other, EOMI, No xanthelasmas are seen Neck: carotid pulses are 2 + bilaterally, with good upstrokes Respiratory: No accessory muscle use, lungs clear to auscultation Cardiovascular: regular rate-rhythm, S1 and S2, systolic murmur (soft JENNIFER at card base) Gastrointestinal: No tender, soft, No guarding, No rebound, audible bowel sounds Extremities: No clubbing, No cyanosis, No significant edema Neurologic/Psychiatric: other (Mental status exam as described above; seems to move all limbs equally) Skin: No rash on exposed areas, No ulcerations on exposed areas Data Review Labs Laboratory Tests 11/13/17 10:23 A/P-Cardiology Assessment/Admission Diagnosis PAF with RVR, first diagnosed on 11/14/17, suspected be due to "holiday heart" ( alcohol-related) Delirium tremens Quit heavy alcohol use on No acute findings on CT head of TSH normal on 11/13/17 Discussion and Recomendations * BB for vent rate control * Apixaban for stroke prophylaxis, if approved by the Med Svce * Echo to eval for dilated cm * Monitor rhythm on tele * Follow labs Clinical Quality Measures DVT/VTE Risk/Contraindication: Risk Factor Score Per Nursin RFS Level Per Nursing on Admit: 1=Low/No VTE PPX STEPHEN IMSTRY MD FACP FAC CCDS Nov 14, 2017 13:21
[2017-11-14] MEDS ORDERED: APIXABAN 5 MG (ELIQUIS) TABLET PO NR (14:34)
[2017-11-14] MEDS: LORazepam 1 MG (ATIVAN) TAB PO PRN ×2 (14:40→20:49)
[2017-11-14] MEDS: QUEtiapine 100 MG (SEROquel) TAB IMMEDIATE RELEASE PO SCH (20:48)
[2017-11-14] MEDS: APIXABAN 5 MG (ELIQUIS) TABLET PO SCH (20:48)
[2017-11-14] MEDS ORDERED: NS (IVPB) 50 ML ONE (21:56)
[2017-11-14] MEDS ORDERED: meTOprolol 5 MG/5 ML (LOPRESSOR) VIAL IV ONE (22:45)
[2017-11-15] VITALS (18 sets, daily range): BP systolic 109–131; BP diastolic 78–102
[2017-11-15] MEDS: LORazepam 1 MG (ATIVAN) TAB PO PRN ×3 (02:28→10:23)
[2017-11-15] MEDS ORDERED: NS (IVPB) 50 ML ONE (02:45)
[2017-11-15] MEDS: DEXMEDETOMIDINE INJECTION 400 MCG in NS (IVPB) 96 ML IV SCH (02:52)
[2017-11-15] MEDS: HALOPERIDOL 5 MG/ML (HALDOL) AMP IV PRN (03:19)
[2017-11-15] MEDS: D5 1/2 NS 1000 ML IV SOLUTION 1,000 ML IV SCH ×3 (03:47→14:39)
[2017-11-15 04:02] LABS: BASOPHILS % (AUTO) 0 % (0-10); EOSINOPHILS # (AUTO) 0.1 10^3/uL (0.0-0.3); EOSINOPHILS % (AUTO) 2 % (0-10); HEMATOCRIT 40 % (40-54); HEMOGLOBIN 13.7 G/DL (13.3-17.7); LYMPHOCYTES # (AUTO) 1.1 X 10^3 (1.0-4.0); LYMPHOCYTES % (AUTO) 20 % (12-44); MEAN CORPUSCULAR HEMOGLOBIN 37 PG (25-34); MEAN CORPUSCULAR HGB CONC 34 G/DL (32-36); MEAN CORPUSCULAR VOLUME 109 FL (80-99); MEAN PLATELET VOLUME 11.6 FL (7.4-10.4); MONOCYTES # (AUTO) 0.8 X 10^3 (0.0-1.0); MONOCYTES % (AUTO) 15 % (0-12); NEUTROPHILS # (AUTO) 3.5 X 10^3 (1.8-7.8); NEUTROPHILS % (AUTO) 63 % (42-75); PLATELET COUNT 175 10^3/uL (130-400); RED CELL DISTRIBUTION WIDTH 12.2 % (10.0-14.5); WHITE BLOOD COUNT 5.6 10^3/uL (4.3-11.0)
[2017-11-15 04:25] LABS: ALANINE AMINOTRANSFERASE 88 U/L (0-55); ALBUMIN 3.7 GM/DL (3.2-4.5); ALKALINE PHOSPHATASE 64 U/L (40-136); BILIRUBIN,TOTAL 0.5 MG/DL (0.1-1.0); BUN/CREATININE RATIO 5; CALCIUM 8.3 MG/DL (8.5-10.1); CARBON DIOXIDE 21 MMOL/L (21-32); CHLORIDE 112 MMOL/L (98-107); CREATININE SERUM 0.75 MG/DL (0.60-1.30); GFR ESTIMATED > 60; GLUCOSE 120 MG/DL (70-105); MAGNESIUM 2.2 MG/DL (1.8-2.4); POTASSIUM 3.6 MMOL/L (3.6-5.0); SODIUM 141 MMOL/L (135-145); TOTAL PROTEIN 6.2 GM/DL (6.4-8.2)
[2017-11-15] MEDS ORDERED: KCL 20 MEQ TAB (K-DUR) PO SCH (06:00)
[2017-11-15] MEDS ORDERED: MAGNESIUM 1 GM/100 ML IVPB 100 ML IV SCH (06:00)
[2017-11-15] MEDS ORDERED: POTASSIUM CL 10MEQ/50ML IVPB 50 ML IV SCH (06:00)
[2017-11-15] MEDS: APIXABAN 5 MG (ELIQUIS) TABLET PO SCH ×2 (07:50→20:41)
[2017-11-15] MEDS: KCL 20 MEQ TAB (K-DUR) PO SCH (07:50)
[2017-11-15] MEDS: FOLIC ACID 1 MG TAB PO SCH (07:50)
[2017-11-15] MEDS ORDERED: DILTIAZEM 240 MG (CARDIZEM CD) CAP PO NR (09:15)
--- NOTE | 2017-11-15 09:18 | Progress Note-Cardiology ---
Cardiology SOAP Progress Note Subjective: No cp or palp or syncope Objective: I&O/Vital Signs Vital Sign - Last 12Hours 11/14/17 11/14/17 11/14/17 11/15/17 22:00 23:00 23:15 00:00 Temp 98.0 Pulse 138 115 123 Resp 15 19 19 B/P (MAP) 100/73 (82) 122/91 (101) 118/85 (96) Pulse Ox 98 99 95 O2 Delivery Room Air Room Air Room Air Room Air 11/15/17 11/15/17 11/15/17 11/15/17 01:00 01:00 02:00 03:00 Pulse 120 120 138 123 Resp 12 19 21 B/P (MAP) 119/89 (99) 109/98 (102) 122/78 (93) O2 Delivery Room Air Room Air Room Air 11/15/17 11/15/17 11/15/17 11/15/17 03:35 04:00 05:00 06:00 Pulse 123 65 104 Resp 19 13 27 B/P (MAP) 115/91 (99) 122/102 (109) 124/95 (105) Pulse Ox 98 O2 Delivery Room Air Room Air Room Air Room Air 11/15/17 11/15/17 11/15/17 07:00 07:38 07:45 Temp 97.5 Pulse 123 112 Resp 18 B/P (MAP) 129/95 (106) Pulse Ox 100 100 O2 Delivery Room Air Room Air Intake and Output 11/15/17 00:00 Intake Total 1500 ml Output Total 500 ml Balance 1000 ml Weight (Pounds): 168 Weight (Ounces): 5.0 Weight (Calculated Kilograms): [id number] Constitutional: well-developed, well-nourished, other (more alert today, seems to know where he is) Respiratory: No accessory muscle use, lungs clear to auscultation Cardiovascular: regular rate-rhythm, S1 and S2, systolic murmur (soft JENNIFER at card base) Gastrointestional: No tender, soft, No guarding, No rebound, audible bowel sounds Extremities: No clubbing, No cyanosis, No significant edema Neurologic/Psychiatric: other (Mental status exam as described above; seems to move all limbs equally) Skin: No rash on exposed areas, No ulcerations on exposed areas Results/Procedures: Labs Laboratory Tests 11/15/17 03:20: White Blood Count 5.6, Red Blood Count 3.70L, Hemoglobin 13.7, Hematocrit 40, Mean Corpuscular Volume 109H, Mean Corpuscular Hemoglobin 37H, Mean Corpuscular Hemoglobin Concent 34, Red Cell Distribution Width 12.2, Platelet Count 175, Mean Platelet Volume 11.6H, Neutrophils (%) (Auto) 63, Lymphocytes (%) (Auto) 20 , Monocytes (%) (Auto) 15H, Eosinophils (%) (Auto) 2, Basophils (%) (Auto) 0, Neutrophils # (Auto) 3.5, Lymphocytes # (Auto) 1.1, Monocytes # (Auto) 0.8, Eosinophils # (Auto) 0.1, Basophils # (Auto) 0.0, Sodium Level 141, Potassium Level 3.6, Chloride Level 112H, Carbon Dioxide Level 21, Anion Gap 8, Blood Urea Nitrogen 4L, Creatinine 0.75, Estimat Glomerular Filtration Rate > 60, BUN/ Creatinine Ratio 5, Glucose Level 120H, Calcium Level 8.3L, Magnesium Level 2.2 , Total Bilirubin 0.5, Aspartate Amino Transf (AST/SGOT) 87H, Alanine Aminotransferase (ALT/SGPT) 88H, Alkaline Phosphatase 64, Total Protein 6.2L, Albumin 3.7 Laboratory Tests 11/13/17 10:23 11/15/17 03:20 A/P: Assessment: PAF with RVR, first diagnosed on 11/14/17, suspected be due to "holiday heart" ( alcohol-related) Delirium tremens Quit heavy alcohol use on No acute findings on CT head of TSH normal on 11/13/17 Plan: * BB for vent rate control * Apixaban for stroke prophylaxis * Add long-acting dilt for vent rate control (not adequately controlled on current dose of bb) * Echo today * I discussed his case with Dr Jenkins today * Monitor rhythm on tele * Follow labs STEPHEN MISTRY MD [facility] CCDS Nov 15, 2017 09:18
--- NOTE | 2017-11-15 11:02 | Progress Note (SOAP) ---
Subjective Subjective/Events-last exam Patient only received 4mg of ativan total last night. BY nurse report, he is still marginally confused but very easily redirected. I had a good conversation with him today, and he was able to track iwth me the whole time. He does not remember much of what happened yesterday and is embarrassed to have caused so much excitement. He wants to be "done" with the "withdrawal process" and get on to [facility]. He is not having chest pain or SOB from the a fib. Review of Systems Date Seen by Provider: Nov 15, 2017 Time Seen by Provider: 08:00 Pulmonary: No Dyspnea Cardiovascular: No: Palpitations Objective Exam Last Set of Vital Signs Vital Signs Date Time Temp Pulse Resp B/P (MAP) Pulse Ox O2 Delivery O2 Flow Rate FiO2 11/15/17 10:00 126 16 112/96 (101) Room Air 11/15/17 07:45 100 11/15/17 07:38 97.5 11/14/17 19:00 3.00 Capillary Refill : Less Than 3 Seconds I&O Intake and Output 11/15/17 00:00 Intake Total 2690 ml Output Total 1400 ml Balance 1290 ml Intake Oral 590 ml IV Total 2100 ml Output Urine Total 1400 ml # Voids 5 General: Alert, Oriented X3, Cooperative, No Acute Distress Lungs: Clear to Auscultation, Normal Air Movement Heart: Normal S1, Normal S2, Other (irregularly irregular) Abdomen: Normal Bowel Sounds, Soft, No Tenderness, No Hepatosplenomegaly, No Masses Extremities: No Clubbing, No Cyanosis, No Edema, Normal Pulses, No Tenderness/ Swelling Neuro: Normal Speech Psych/Mental Status: Mental Status NL, Mood NL Results/Procedures Lab Laboratory Tests 11/15/17 03:20: White Blood Count 5.6, Red Blood Count 3.70L, Hemoglobin 13.7, Hematocrit 40, Mean Corpuscular Volume 109H, Mean Corpuscular Hemoglobin 37H, Mean Corpuscular Hemoglobin Concent 34, Red Cell Distribution Width 12.2, Platelet Count 175, Mean Platelet Volume 11.6H, Neutrophils (%) (Auto) 63, Lymphocytes (%) (Auto) 20 , Monocytes (%) (Auto) 15H, Eosinophils (%) (Auto) 2, Basophils (%) (Auto) 0, Neutrophils # (Auto) 3.5, Lymphocytes # (Auto) 1.1, Monocytes # (Auto) 0.8, Eosinophils # (Auto) 0.1, Basophils # (Auto) 0.0, Sodium Level 141, Potassium Level 3.6, Chloride Level 112H, Carbon Dioxide Level 21, Anion Gap 8, Blood Urea Nitrogen 4L, Creatinine 0.75, Estimat Glomerular Filtration Rate > 60, BUN/ Creatinine Ratio 5, Glucose Level 120H, Calcium Level 8.3L, Magnesium Level 2.2 , Total Bilirubin 0.5, Aspartate Amino Transf (AST/SGOT) 87H, Alanine Aminotransferase (ALT/SGPT) 88H, Alkaline Phosphatase 64, Total Protein 6.2L, Albumin 3.7 Assessment/Plan Assessment/Plan Assessment & Plan 1. Alcohol withdrawal -Patient to be placed on detoxification orders 4/2 - patient only received 4mg overnight. I anticipate that he should receive around 4mg q 6-8h today. I will go ahead and transfer to floor. I do not believe he needs a sitter any longer. I am also going to DC fluids so that he can get up and walk around a bit as he is asking to shower. I would like him to stay today and tomorrow with plans to DC early Wednesday for an appt at [facility] with Ephraim for the [facility] at 10. We anticipate he will go to [facility] either Wednesday or of this week depending on bed availability. 2. Acute psychosis due to the alcohol withdrawal -Detox orders should help with the psychosis as he improves. -Ativan when necessary 4 patient is requiring Precedex, Ativan, and Haldol as needed 4/2 - RESOLVED. minimal confusion today 3. Atrial fibrillation with variable heart rate -He is also noted to have elevated blood pressure and this may be related to his withdrawal state -Consult with cardiology 4/2 - plan is to do rate control for now, then do DC cardioversion in several weeks if he is still in afib. 4. Essential HTN 4/2 - patient has a history of high BP. currently on diltiazem and metoprolol. 5. Generalized Anxiety Disorder 4/2 - we will stop the seroquel and olanzapine for now. add the Remeron from outpatient as that was helping him rest more. If possible, we can also increase the Toprol XL to help with anxiety as well since we will need to stop the clonidine. --> PLAN FOR DC ON WEDNESDAY MORNING BY 9AM SO THAT HE CAN MAKE IT TO THE CLINIC BY 10AM. IF THIS IS NOT GOING TO HAPPEN, WOULD APPRECIATE A PHONE CALL TO BERTHA COTA TO LET HER KNOW. Clinical Quality Measures DVT/VTE Risk/Contraindication: Risk Factor Score Per Nursin RFS Level Per Nursing on Admit: 1=Low/No VTE PPX CAMI FARMER MD Nov 15, 2017 11:02 am
[2017-11-15] MEDS: THIAMINE INJECTION 100 MG, FOLIC ACID INJECTION 1 MG, VITAMIN MULTI INJECTION 10 ML, MA... IV SCH ×5 (11:15)
[2017-11-15] MEDS: LORazepam INJ 2 MG/ML (ATIVAN) VIAL IV PRN ×3 (11:37→18:52)
[2017-11-15] MEDS ORDERED: METO-387 PO (13:13)
[2017-11-15] MEDS ORDERED: APIX5TAB PO (13:13)
[2017-11-15] MEDS ORDERED: THIA100T7 PO (13:13)
[2017-11-15] MEDS ORDERED: Multivitamins/Minerals Therap PO (13:13)
[2017-11-15] MEDS: cloNIDine 0.1 MG (CATAPRES) TAB PO SCH (20:41)
[2017-11-15] MEDS: MIRTAZAPINE 15 MG (REMERON) TAB PO SCH (20:41)
[2017-11-16] VITALS: BP 129/82
[2017-11-16] MEDS: LORazepam INJ 2 MG/ML (ATIVAN) VIAL IV PRN ×3 (00:24→05:57)
[2017-11-16 04:15] VITALS: BP 142/89
[2017-11-16 05:32] LABS: MEAN PLATELET VOLUME 10.9 FL (7.4-10.4); RED BLOOD COUNT 4.25 10^6/uL (4.35-5.85); RED CELL DISTRIBUTION WIDTH 12.4 % (10.0-14.5); WHITE BLOOD COUNT 6.9 10^3/uL (4.3-11.0)
[2017-11-16 05:50] LABS: ALANINE AMINOTRANSFERASE 103 U/L (0-55); ALBUMIN 4.9 GM/DL (3.2-4.5); ALKALINE PHOSPHATASE 76 U/L (40-136); BILIRUBIN,TOTAL 0.7 MG/DL (0.1-1.0); BUN/CREATININE RATIO 6; CALCIUM 9.9 MG/DL (8.5-10.1); CARBON DIOXIDE 21 MMOL/L (21-32); CHLORIDE 106 MMOL/L (98-107); CREATININE SERUM 0.89 MG/DL (0.60-1.30); GFR ESTIMATED > 60; GLUCOSE 94 MG/DL (70-105); POTASSIUM 3.6 MMOL/L (3.6-5.0); SODIUM 141 MMOL/L (135-145); TOTAL PROTEIN 8.7 GM/DL (6.4-8.2)
[2017-11-16] MEDS: KCL 20 MEQ TAB (K-DUR) PO SCH (05:57)
[2017-11-16 08:00] VITALS: BP 135/98
[2017-11-16] MEDS: LORazepam INJ 2 MG/ML (ATIVAN) VIAL IM/IV PRN (08:12)
[2017-11-16] MEDS ORDERED: FOLIC ACID 1 MG TAB PO SCH (09:00)
[2017-11-16] MEDS: APIXABAN 5 MG (ELIQUIS) TABLET PO SCH ×2 (09:37→20:33)
[2017-11-16] MEDS: FOLIC ACID 1 MG TAB PO SCH (09:38)
[2017-11-16] MEDS: cloNIDine 0.1 MG (CATAPRES) TAB PO SCH ×2 (09:38→20:33)
--- NOTE | 2017-11-16 11:52 | Progress Note-Cardiology ---
Cardiology SOAP Progress Note Subjective: Feels well today Denies cp or palp or syncope or shortness of breath Objective: I&O/Vital Signs Vital Sign - Last 12Hours 11/16/17 11/16/17 11/16/17 11/16/17 00:00 01:00 04:15 07:00 Temp 98.0 97.5 Pulse 120 91 124 80 Resp 18 22 B/P (MAP) 129/82 (98) 142/89 (106) Pulse Ox 98 97 O2 Delivery Room Air Room Air 11/16/17 11/16/17 08:00 08:31 Temp 98.2 Pulse 94 Resp 20 B/P (MAP) 135/98 (110) Pulse Ox 100 100 O2 Delivery Room Air Room Air Intake and Output 11/16/17 00:00 Intake Total 1325 ml Output Total 2700 ml Balance -1375 ml Weight (Pounds): 168 Weight (Ounces): 5.0 Weight (Calculated Kilograms): 76.785113 Constitutional: AAO x 3, well-developed, well-nourished, other (more alert today, seems to know where he is) Respiratory: No accessory muscle use, lungs clear to auscultation Cardiovascular: regular rate-rhythm, S1 and S2, systolic murmur (soft JENNIFER at card base) Gastrointestional: No tender, soft, No guarding, No rebound, audible bowel sounds Extremities: No clubbing, No cyanosis, No significant edema Neurologic/Psychiatric: oriented x 3, grossly intact, power is 5/5 both on sides Skin: No rash on exposed areas, No ulcerations on exposed areas Results/Procedures: Labs Laboratory Tests 11/16/17 05:15: White Blood Count 6.9, Red Blood Count 4.25L, Hemoglobin 16.0, Hematocrit 45, Mean Corpuscular Volume 107H, Mean Corpuscular Hemoglobin 38H, Mean Corpuscular Hemoglobin Concent 35, Red Cell Distribution Width 12.4, Platelet Count 225, Mean Platelet Volume 10.9H, Sodium Level 141, Potassium Level 3.6, Chloride Level 106, Carbon Dioxide Level 21, Anion Gap 14, Blood Urea Nitrogen 5L, Creatinine 0.89, Estimat Glomerular Filtration Rate > 60, BUN/Creatinine Ratio 6 , Glucose Level 94, Calcium Level 9.9, Total Bilirubin 0.7, Aspartate Amino Transf (AST/SGOT) 84H, Alanine Aminotransferase (ALT/SGPT) 103H, Alkaline Phosphatase 76, Total Protein 8.7H, Albumin 4.9H Laboratory Tests 11/15/17 03:20 11/16/17 05:15 A/P: Assessment: PAF with RVR, first diagnosed on 11/14/17, suspected be due to "holiday heart" ( alcohol-related). NSR today Echo of 11/15/17: LVEF 50%, PASP 25-30 mmHg Delirium tremens Quit heavy alcohol use on Elevated transaminases, likely alcohol-related No acute findings on CT head of TSH normal on 11/13/17 Plan: * We recommend continuation of current card regimen for now * BB for vent rate control * Apixaban for stroke prophylaxis * Advised to refrain from alcohol use * Outpatient f/u advised STEPHEN MISTRY MD FACP F[facility] Nov 16, 2017 11:52
[2017-11-16 12:00] VITALS: BP 127/82
[2017-11-16] MEDS ORDERED: LORazepam 1 MG (ATIVAN) TAB PO NR (12:19)
[2017-11-16 16:00] VITALS: BP 118/77
[2017-11-16] MEDS ORDERED: LORazepam 1 MG (ATIVAN) TAB PO PRN (18:30)
[2017-11-16 19:10] VITALS: BP 134/92
[2017-11-16] MEDS: MIRTAZAPINE 15 MG (REMERON) TAB PO SCH (20:33)
--- NOTE | 2017-11-16 23:12 | Progress Note (SOAP) ---
Subjective Subjective/Events-last exam Pt anxious but feeling better from a withdrawal standpoint. Patient is wanting to go home tonight to get everything in order before going to [facility]C tomorrow. Father is here and is recommending patient stay until tomorrow, does not feel it is in pt's best interest to go home tonight. Review of Systems Date Seen by Provider: Nov 16, 2017 Time Seen by Provider: 13:50 Objective Exam Last Set of Vital Signs Vital Signs Date Time Temp Pulse Resp B/P (MAP) Pulse Ox O2 Delivery O2 Flow Rate FiO2 11/16/17 19:10 98.1 99 20 134/92 (106) 99 Room Air 11/14/17 19:00 3.00 Capillary Refill : Less Than 3 Seconds I&O Intake and Output 11/16/17 00:00 Intake Total 4975 ml Output Total 5575 ml Balance -600 ml Intake Oral 2975 ml IV Total 2000 ml Output Urine Total 5575 ml # Bowel Movements 1 General: Alert, Oriented X3, Cooperative Lungs: Clear to Auscultation Heart: Regular Rate Neuro: Other (tremor to hands) Psych/Mental Status: Mood NL (anxious) Results/Procedures Lab Laboratory Tests 11/16/17 05:15: White Blood Count 6.9, Red Blood Count 4.25L, Hemoglobin 16.0, Hematocrit 45, Mean Corpuscular Volume 107H, Mean Corpuscular Hemoglobin 38H, Mean Corpuscular Hemoglobin Concent 35, Red Cell Distribution Width 12.4, Platelet Count 225, Mean Platelet Volume 10.9H, Sodium Level 141, Potassium Level 3.6, Chloride Level 106, Carbon Dioxide Level 21, Anion Gap 14, Blood Urea Nitrogen 5L, Creatinine 0.89, Estimat Glomerular Filtration Rate > 60, BUN/Creatinine Ratio 6 , Glucose Level 94, Calcium Level 9.9, Total Bilirubin 0.7, Aspartate Amino Transf (AST/SGOT) 84H, Alanine Aminotransferase (ALT/SGPT) 103H, Alkaline Phosphatase 76, Total Protein 8.7H, Albumin 4.9H Assessment/Plan Assessment/Plan Assessment & Plan 1. Alcohol withdrawal -Patient to be placed on detoxification orders 11/15 - patient only received 4mg overnight. I anticipate that he should receive around 4mg q 6-8h today. I will go ahead and transfer to floor. I do not believe he needs a sitter any longer. I am also going to DC fluids so that he can get up and walk around a bit as he is asking to shower. I would like him to stay today and tomorrow with plans to DC early Wednesday for an appt at [facility] with Ephraim for the [facility] at 10. We anticipate he will go to ATC either Wednesday or of this week depending on bed availability. 4/3 - 4mg Ativan po ordered every 8h; Plan to DC tomorrow and will go to [facility]C Wed after appt at [facility]. 2. Acute psychosis due to the alcohol withdrawal -Detox orders should help with the psychosis as he improves. -Ativan when necessary 11/14 patient is requiring Precedex, Ativan, and Haldol as needed 4/2 - RESOLVED. minimal confusion today 3. Atrial fibrillation with variable heart rate -He is also noted to have elevated blood pressure and this may be related to his withdrawal state -Consult with cardiology 4/2 - plan is to do rate control for now, then do DC cardioversion in several weeks if he is still in afib. 4 - on Eliquis 4. Essential HTN 4/2 - patient has a history of high BP. currently on diltiazem and metoprolol. 5. Generalized Anxiety Disorder 4/2 - we will stop the seroquel and olanzapine for now. add the Remeron from outpatient as that was helping him rest more. If possible, we can also increase the Toprol XL to help with anxiety as well since we will need to stop the clonidine. --> PLAN FOR DC ON WEDNESDAY MORNING BY 9AM SO THAT HE CAN MAKE IT TO THE CLINIC BY 10AM. IF THIS IS NOT GOING TO HAPPEN, WOULD APPRECIATE A PHONE CALL TO BERTHA COTA TO LET HER KNOW. Clinical Quality Measures DVT/VTE Risk/Contraindication: Risk Factor Score Per Nursin RFS Level Per Nursing on Admit: 1=Low/No VTE PPX HEIDI FRANK DO Nov 16, 2017 23:12
[2017-11-17] VITALS: BP_SYST 106; BP_SYST 136; BP_DIAS 57; BP_DIAS 88
[2017-11-17 04:00] VITALS: BP 129/88
[2017-11-17] MEDS: KCL 20 MEQ TAB (K-DUR) PO SCH (06:03)
[2017-11-17 08:00] VITALS: BP 129/87
[2017-11-17] MEDS: FOLIC ACID 1 MG TAB PO SCH (08:35)
[2017-11-17] MEDS: cloNIDine 0.1 MG (CATAPRES) TAB PO SCH (08:35)
[2017-11-17] MEDS: APIXABAN 5 MG (ELIQUIS) TABLET PO SCH (08:35)
--- NOTE | 2017-11-17 08:36 | Discharge Instructions ---
CAMI FARMER MD 11/15/17 1315: Discharge [facility] Discharge Medications New, Converted or Re-Newed RX: Transmitted to Pharmacy New Medications: Apixaban (Eliquis) 5 Mg Tablet 5 MG PO BID, #60 TAB 1 Refill Metoprolol Succinate (Metoprolol Succinate) 25 Mg Tab.er.24h 25 MG PO DAILY, #30 TAB 1 Refill Thiamine HCl (Vitamin B-1) 100 Mg Tablet 100 MG PO DAILY@0700, #30 TAB 1 Refill MAY BUY OVER THE COUNTER. [Multivitamins/Minerals Therap] () 1 EA TABLET 1 EA PO DAILY@0700, #30 TAB 1 Refill MAY BUY OVER THE COUNTER. Continued Medications: Folic Acid (Folic Acid) 1 Mg Tablet 1 MG PO DAILY FILLED 11/10/17 #3 FOR A 3 DAY THERAPY Mirtazapine (Mirtazapine) 15 Mg Tablet 15 MG PO HS Discontinued Medications: Clonidine HCl (Clonidine HCl) 0.1 Mg Tablet 0.1 MG PO BID Activity & Diet Discharge Diet: No Restrictions Activity as Tolerated: Yes Orders-Post D/C & Referrals Pneu Vac Indicated: Yes Copy Copies To 1: CAMI FARMER MD, LINDA K DO 11/17/17 0836: Discharge [facility] Discharge Medications New Medications: Apixaban (Eliquis) 5 Mg Tablet 5 MG PO BID, #60 TAB 1 Refill Metoprolol Succinate (Metoprolol Succinate) 25 Mg Tab.er.24h 25 MG PO DAILY, #30 TAB 1 Refill Thiamine HCl (Vitamin B-1) 100 Mg Tablet 100 MG PO DAILY@0700, #30 TAB 1 Refill MAY BUY OVER THE COUNTER. [Multivitamins/Minerals Therap] () 1 EA TABLET 1 EA PO DAILY@0700, #30 TAB 1 Refill MAY BUY OVER THE COUNTER. Continued Medications: Folic Acid (Folic Acid) 1 Mg Tablet 1 MG PO DAILY FILLED 11/10/17 #3 FOR A 3 DAY THERAPY Mirtazapine (Mirtazapine) 15 Mg Tablet 15 MG PO HS Discontinued Medications: Clonidine HCl (Clonidine HCl) 0.1 Mg Tablet 0.1 MG PO BID Patient Instructions Goal/Follow Up Appt: Follow up with [facility] at 10am Dr. Farmer will give prescription for Ativan taper at the 10am appointment and make further follow-up appointments. Copy Copies To 1: CAMI FARMER MD, JULIE A MD Nov 15, 2017 13:15 HEIDI FRANK DO Nov 17, 2017 08:36
--- NOTE | 2017-11-17 08:40 | Discharge Summary ---
Diagnosis/Chief Complaint Date of Admission Nov 13, 2017 at 12:13 Date of Discharge November 17, 2017 Admission Diagnosis Admission Diagnosis 1. Alcohol withdrawal 2. Acute psychosis due to the alcohol withdrawal Discharge Diagnosis 1. Alcohol withdrawal -Patient to be placed on detoxification orders 4/2 - patient only received 4mg overnight. I anticipate that he should receive around 4mg q 6-8h today. I will go ahead and transfer to floor. I do not believe he needs a sitter any longer. I am also going to DC fluids so that he can get up and walk around a bit as he is asking to shower. I would like him to stay today and tomorrow with plans to DC early Wednesday for an appt at [facility] with Ephraim for the [facility] at 10. We anticipate he will go to ATC either Wednesday or of this week depending on bed availability. 4/3 - 4mg Ativan po ordered every 8h; Plan to DC tomorrow and will go to ATC Wed after appt at [facility]. 11/17 - DC, father here to transport patient. Will go to [facility] for ATS appointment with am; Dr. Farmer will provide Ativan taper prescription at that time. Will go to ATC today. 2. Acute psychosis due to the alcohol withdrawal -Detox orders should help with the psychosis as he improves. -Ativan when necessary 11/14 patient is requiring Precedex, Ativan, and Haldol as needed 4/2 - RESOLVED. minimal confusion today 3. Atrial fibrillation with variable heart rate -He is also noted to have elevated blood pressure and this may be related to his withdrawal state -Consult with cardiology 4/2 - plan is to do rate control for now, then do DC cardioversion in several weeks if he is still in afib. 4/ - on Eliquis 11/17 - F/u appointment made with Dr. Campuzano 4. Essential HTN 4/2 - patient has a history of high BP. currently on diltiazem and metoprolol. 5. Generalized Anxiety Disorder 4/2 - we will stop the seroquel and olanzapine for now. add the Remeron from outpatient as that was helping him rest more. If possible, we can also increase the Toprol XL to help with anxiety as well since we will need to stop the clonidine. Chief Complaint/HPI Chief Complaint/HPI 32-year-old white male admitted through emergency department after suffering from psychosis due to alcohol delirium and withdrawal. Patient quit drinking alcohol as he admits to on November 10, 2017. Patient has received Ativan intravenously in the emergency department with minimal relief of his psychosis. He'll be admitted for further alcohol detoxification orders and ICU monitoring. Discharge Summary-Simple/Stand Consultations Discharge Physical Examination Allergies: Coded Allergies: No Known Drug Allergies (Unverified , 08/19/14) Vitals & I&Os Vital Sign - Last 12Hours Date Time Temp Pulse Resp B/P (MAP) Pulse Ox O2 Delivery O2 Flow Rate FiO2 11/17/17 04:00 96.8 97 19 129/88 (102) 98 Room Air 11/14/17 19:00 3.00 Intake and Output 11/17/17 00:00 Intake Total 1605 ml Balance 1605 ml General Appearance: Alert, Oriented X3, Cooperative Psych/Mental Status: Mood NL Hospital Course See final discharge diagnosis. Discharge Instructions to patient/family Please see electronic discharge instructions given to patient. Discharge Medications Reviewed and agree with Discharge Medication list on patient's Discharge Instruction sheet Clinical Quality Measures DVT/VTE Risk/Contraindication: Risk Factor Score Per Nursin RFS Level Per Nursing on Admit: 1=Low/No VTE PPX Copy Copies To 1: CAMI FARMER MD, LINDA K DO Nov 17, 2017 08:40
[2017-11-17 09:49] VITALS: BP 129/87
== END 2017-11-17 08:40 | disposition home or self-care (01) | DRG 897 ==
LOC: EDUNIT# 09:50 → ER 09:51 → ICU 12:13 → 4TH 11-15 19:23
PROVIDERS: ADMIT Family Medicine; ATTEND Family Medicine
DX: F10.231 Alcohol dependence with withdrawal delirium (principal); I48.0 Paroxysmal atrial fibrillation; I10 Essential (primary) hypertension; F41.9 Anxiety disorder, unspecified; F17.210 Nicotine dependence, cigarettes, uncomplicated
CPT/HCPCS: 36415; 80053; 80306; 80320; 81000; 83735; 84443; 85025; 85027; 93005; 93306; 96374; 96376

== ENCOUNTER → 2019-09-20 | Outpatient (CLI) | payer BC ==
[~2019-09-20] MED LIST changes: +APIX5TAB PO; +CLON0.1T PO; +FOLI1TAB24 PO; +LORA2TAB PO; +MIRT15TA6 PO; +MTP25TSR PO; +Multivitamins/Minerals Therap PO; +THIA100T80 PO
--- NOTE | 2019-09-20 16:44 | Diagnostic Imaging Report ---
INDICATION: Dysuria. FINDINGS: Ultrasonography of the urinary bladder is performed. Initial bladder volume is 260 mL. After voiding, there is no significant residual. No filling defect or perivesicular abnormality was noted. IMPRESSION: Unremarkable bladder ultrasound without postvoid residual. Dictated by: Dictated on workstation # [id number]
== END ==
LOC: RAD 15:05
PROVIDERS: ATTEND Pediatrics
DX: N34.3 Urethral syndrome, unspecified (principal)
CPT/HCPCS: 76857